=== PATIENT | female | born 2000 | race African-American/Black ===

== ENCOUNTER → 2020-02-12 09:46 | Outpatient (CLI) | payer OTHER, SELFPAY ==
--- NOTE | ~2020-02-12 | US_ITS ---
US axilla RT 02/12/2020 10:21 Indication: Localized swelling right axilla with palpable mass Procedure: High-resolution ultrasound of the right axilla Comparison: No prior studies for comparison. Findings: There is normal heterogeneous echotexture. No focal solid or cystic mass is identified in t he area of palpable concern. Impression: 1: Normal ultrasound of the right axilla without discrete mass. Reviewed, dictated and finalized at location A. Impression: 1: Normal ultrasound of the right axilla without discrete mass.
== END ==
PROVIDERS: PCP Internal Medicine; Visit Provider Internal Medicine
DX: R59.0 Localized enlarged lymph nodes (principal)
CPT/HCPCS: 76882